=== PATIENT | female | born 1965 | race American Indian/Alaskan Native ===

== ENCOUNTER 2018-11-28 17:33 | Emergency (ER) | payer OTHER ==
--- NOTE | 2018-11-28 17:48 | Emergency Department Report ---
Blank Doc - Documentation Documentation: pt presents with substernal CP that began 2 hours ago states it feels like indigestion hx of GERD, took 2 tums, and gingerale +N/V no radiation of the pain +SOB no LE edema no hormone use PMHx DM, HTN no cardiac hx no family hx of [place] +smoker, 1/2 PPD occ drinker no drug use
[2018-11-28 18:36] LABS: Basophils # (Auto) 0.1 K/mm3 (0.0-0.1); Basophils % (Auto) 0.5 % (0.0-1.8); Eosinophils # (Auto) 0.2 K/mm3 (0.0-0.4); Eosinophils % (Auto) 1.6 % (0.0-4.3); Hematocrit 40.7 % (30.3-42.9); Hemoglobin 13.9 gm/dl (10.1-14.3); Lymphocytes # (Auto) 3.3 K/mm3 (1.2-5.4); Lymphocytes % (Auto) 25.4 % (13.4-35.0); Mean Corpuscular HGB Conc 34 % (30-34); Mean Corpuscular Volume 84 fl (79-97); Monocytes # (Auto) 0.9 K/mm3 (0.0-0.8); Platelet Count 222 K/mm3 (140-440); Red Blood Count 4.82 M/mm3 (3.65-5.03); Red Cell Distribution Width 15.1 % (13.2-15.2)
--- NOTE | 2018-11-28 18:37 | XRay Report ---
PROCEDURE: XR CHEST 1V AP TECHNIQUE: Chest radiograph single view. HISTORY: Chest Pain COMPARISONS: None . FINDINGS: Single frontal view of the chest was acquired. The heart is mildly large. There is no evide nce of congestive heart failure. There is no consolidative infiltrate. IMPRESSION: The heart is mildly large. Otherwise, no active disease in the chest This document is electronically signed by Cordell Georges MD., Nov 28 2018 06:35:13 PM ET
[2018-11-28] MEDS ORDERED: PROTONIX IV ONE (18:40)
[2018-11-28] MEDS ORDERED: LIDOCAINE VISCOUS 2% PO ONE (18:40)
[2018-11-28] MEDS ORDERED: ALUM-MAG HYDROX-SIMETH 200-200-20MG/5ML PO ONE (18:40)
--- NOTE | 2018-11-28 18:44 | Emergency Department Report ---
ED Chest Pain HPI - General Chief Complaint: Chest Pain Stated Complaint: CHEST PAIN Time Seen by Provider: 11/28/18 17:46 Source: patient Mode of arrival: Wheelchair Limitations: No Limitations - History of Present Illness Initial Comments: Patient is 53 years old female with history of hypertension, diabetes and GERD. Patient presented to the ER complaining of substernal chest pain, tightness in nature with radiation to her thoughts. Patient stated that symptoms started after she ate approximately 2 hours ago. Patient denied any shortness of br eath, fever, chills, cough, nausea or vomiting. MD Complaint: chest pain -: hour(s) (2) Onset: during rest Pain Location: substernal Pain Radiation: other (throat) Severity scale (0 -10): 8 Quality: tightness Consistency: constant - Related Data Previous Rx's Medication Instructions Recorded Last Taken Type Ferrous Sulfate [Feosol 325 MG tab] 325 mg PO BID #60 tablet 12/14/13 Unknown Rx Allergies Allergy/AdvReac Type Severity Reaction Status Date / Time No Known Allergies Allergy Verified 11/28/18 17:36 Heart Score - HEART Score History: Slightly suspicious EKG: Non-specific Age: 45-65 Risk factors: 1-2 risk factors Troponin: < normal limit HEART Score: 3 - Critical Actions Critical Actions: 0-3 pts:0.9-1.7%risk of adverse cardiac event.Candidate for discharge ED Review of Systems ROS: Stated complaint: CHEST PAIN Other details as noted in HPI Comment: All other systems reviewed and negative Constitutional: denies: chills, fever Respiratory: denies: cough, shortness of breath Cardiovascular: chest pain. denies: palpitations, dyspnea on exertion Gastrointestinal: denies: abdominal pain, nausea, vomiting, diarrhea, constipation, hematemesis, melena, hematochezia Neurological: denies: headache, weakness, numbness, paresthesias, confusion ED Past Medical Hx - Past Medical History Hx Hypertension: Yes Hx Diabetes: Yes - Surgical History Additional Surgical History: 3 c-sections - Social History Smoking Status: Current Every Day Smoker Substance Use Type: Alcohol - Medications Home Medications: Home Medications Medication Instructions Recorded Confirmed Last Taken Type Ferrous Sulfate [Feosol 325 MG tab] 325 mg PO BID #60 tablet 12/14/13 Unknown Rx ED Physical Exam - General Limitations: No Limitations General appearance: alert, in no apparent distress - Head Head exam: Present: atraumatic, normocephalic, normal inspection - Eye Eye exam: Present: normal appearance, PERRL - ENT ENT exam: Present: normal exam, normal orophraynx, mucous membranes moist - Neck Neck exam: Present: normal inspection, full ROM. Absent: tenderness, meningismus, lymphadenopathy, thyromegaly - Respiratory Respiratory exam: Present: normal lung sounds bilaterally - Cardiovascular Cardiovascular Exam: Present: regular rate, normal rhythm, normal heart sounds - GI/Abdominal GI/Abdominal exam: Present: soft, normal bowel sounds. Absent: distended, tenderness, guarding, rebound, rigid, organomegaly, mass, bruit, pulsatile mass, hernia - Extremities Exam Extremities exam: Present: normal inspection, full ROM, normal capillary refill. Absent: tenderness, pedal edema, calf tenderness - Back Exam Back exam: Present: normal inspection, full ROM. Absent: tenderness, CVA tenderness (R), CVA tenderness (L), muscle spasm, paraspinal tenderness, vertebral tenderness - Neurological Exam Neurological exam: Present: alert, oriented X3, CN II-XII intact, normal gait, reflexes normal - Skin Skin exam: Present: warm, intact, normal color ED Course Vital Signs 11/28/18 11/28/18 11/28/18 17:46 18:54 19:15 Temperature 98.4 F 98.3 F Pulse Rate 117 H 92 H Respiratory 20 15 18 Rate Blood Pressure Blood Pressure 128/95 132/82 [Right] O2 Sat by Pulse 98 99 Oximetry 11/28/18 11/28/18 19:18 20:01 Temperature Pulse Rate 103 H 98 H Respiratory 25 H Rate Blood Pressure 134/76 Blood Pressure [Right] O2 Sat by Pulse 96 Oximetry ED Medical Decision Making - Lab Data Result diagrams: 11/28/18 18:29 11/28/18 18:29 - EKG Data -: EKG Interpreted by Dc EKG shows normal: sinus rhythm Rate: normal - EKG Data Interpretation: no acute changes - Radiology Data Radiology results: report reviewed Referring Physician: SUZIE SCHMIDT Patient Name: VENTURA SALOMON Date of : 1965 Sex: Female Report Date: 2018-11-28 Report Status: Finalized Findings [facility] [address] [place] [address] Cat Scan Report Signed Patient: VENTURA SALOMON MR#: [id number] 73 : 1965 Acct:[id number] Age/Sex: 53 / F ADM Date: 11/28/18 Loc: ED Attending Dr: Ordering Physician: SUZIE SCHMIDT Date of Service: 11/28/18 Procedure(s): CT angio chest Accession Number(s): [id number] cc: SUZIE SCHMIDT PROCEDURE: CT ANGIO CHEST TECHNIQUE: Computerized tomographic angiography of the chest was performed after the IV injection of iodinated nonionic contrast including image processing. The image data was postprocessed using 2-dimensional multiplanar reformatted (MPR) and 3-dimensional (MIP and/or volume rendered) techniques. Automated exposure control, adjustment of mA and/or kV according to patient size, or iterative reconstruction dose optimization techniques were utilized. CT DOSE LENGTH PRODUCT: 706.8 mGycm HISTORY: CHEST PAIN, ELEVATED D-DIMER COMPARISONS: None . FINDINGS: Contrast-enhanced CT angiography of the chest was performed following the intravenous administration of iodinated contrast. Sagittal and coronal MIP three-dimensional reformatted images were generated. These images demonstrate no CT evidence of pulmonary thromboembolic disease. There is no aortic dissection. There is no consolidative pulmonary infiltrate. There are small bilateral thyroid nodules the largest of which is on the right, 0.6 cm. There is considerable wall thickening of the mid and distal esophagus, consistent with severe esophagitis. In the upper abdomen there is fatty infiltration of the liver. IMPRESSION: No CT evidence of pulmonary thromboembolic disease Considerable esophageal wall thickening of the mid and distal esophagus consistent with severe esophagitis This document is electronically signed by Cordell Georges MD., Nov 28 2018 08:22:04 PM ET Transcribed By: TODD Dictated By: CORDELL GEORGES MD Electronically Authenticated By: CORDELL GEORGES MD Signed Date/Time: 11/28/182023 DD/ 46 TD/TT: 11/28/181947 - Medical Decision Making Patient is 53 years old female with history of hypertension, diabetes and GERD. Patient presented to the ER complaining of substernal chest pain, tightness in nature with radiation to her thoughts. Patient stated that symptoms started after she ate approximately 2 hours ago. Patient denied any shortness of b reath, fever, chills, cough, nausea or vomiting. Patient EKG did not show any ST elevation or depression. 2 sets of troponin is negative. CTA chest is negative for acute finding except for esophagitis no pulmonary embolism. Patient improved significantly with Mylanta and Viscous Lidocaine. I believe patient's symptoms is most likely related to gastroesophageal reflux disease. I'll start patient on Nexium and advised to follow-up with her primary care physician for possible referral to GI. So advised the patient to return to the ER if symptoms are not improved. Critical care attestation.: If time is entered above; I have spent that time in minutes in the direct care of this critically ill patient, excluding procedure time. ED Disposition Clinical Impression: Chest pain, Esophagitis Disposition: - TO HOME OR SELFCARE Is pt being admited?: No Condition: Stable Instructions: Chest Pain (ED), Gastroesophageal Reflux in Children (ED) Referrals: [facility] [Other] - 3-5 Days
[2018-11-28 18:46] LABS: INR 0.99 (0.87-1.13)
[2018-11-28 18:47] LABS: Partial Thromboplastin Time 31.5 Sec. (24.2-36.6)
[2018-11-28] MEDS ORDERED: ZOFRAN ONE (18:51)
[2018-11-28] MEDS ORDERED: ZOFRAN IV ONE (18:55)
[2018-11-28 19:15] LABS: Alanine Aminotransferase 22 units/L (7-56); Albumin 4.1 g/dL (3.9-5); BUN/Creatinine Ratio 24; Blood Urea Nitrogen 17 mg/dL (7-17); Calcium 10.4 mg/dL (8.4-10.2); Hemolysis Index 13
--- NOTE | 2018-11-28 20:24 | Cat Scan Report ---
PROCEDURE: CT ANGIO CHEST TECHNIQUE: Computerized tomographic angiography of the chest was performed after the IV injection of iodinated nonionic contrast including image processing. The image data was postprocessed using 2-di mensional multiplanar reformatted (MPR) and 3-dimensional (MIP and/or volume rendered) techniques. Au tomated exposure control, adjustment of mA and/or kV according to patient size, or iterative reconstr uction dose optimization techniques were utilized. CT DOSE LENGTH PRODUCT: 706.8 mGycm HISTORY: CHEST PAIN, ELEVATED D-DIMER COMPARISONS: None . FINDINGS: Contrast-enhanced CT angiography of the chest was performed following the intravenous admin istration of iodinated contrast. Sagittal and coronal MIP three-dimensional reformatted images were g enerated. These images demonstrate no CT evidence of pulmonary thromboembolic disease. There is no aortic disse ction. There is no consolidative pulmonary infiltrate. There are small bilateral thyroid nodules the largest of which is on the right, 0.6 cm. There is considerable wall thickening of the mid and distal esophagus, consistent with severe esophag itis. In the upper abdomen there is fatty infiltration of the liver. IMPRESSION: No CT evidence of pulmonary thromboembolic disease Considerable esophageal wall thickening of the mid and distal esophagus consistent with severe esopha gitis This document is electronically signed by Cordell Georges MD., Nov 28 2018 08:22:04 PM ET
[2018-11-28 21:38] VITALS: BP 121/72
== END 2018-11-28 22:10 | disposition home or self-care (01) ==
LOC: ED 17:33
DX: K20.9 Esophagitis, unspecified (principal); I10 Essential (primary) hypertension; E11.9 Type 2 diabetes mellitus without complications; F17.200 Nicotine dependence, unspecified, uncomplicated
CPT/HCPCS: 36415; 71045; 71275; 80053; 83690; 84484; 85025; 85379; 85610; 85730; 93005; 93010; 96374; 96375; 99284; C9113; J2405; Q9967

== ENCOUNTER 2019-03-08 09:42 | Day surgery (SDC) | payer OTHER ==
--- NOTE | 2019-03-08 12:35 | Anesthesia Day of Surgery ---
Anesthesia Day of Surgery - Day of Surgery Patient Examined: Yes Patient H&P Reviewed: Yes Patient is NPO: Yes
--- NOTE | 2019-03-08 12:39 | Anesthesia Consultation ---
Anesthesia Consult and Med Hx Date of service: 03/08/19 - Airway Anesthetic Teeth Evaluation: Good ROM Head & Neck: Adequate Mental/Hyoid Distance: Adequate Mallampati Class: Class II Intubation Access Assessment: Good - Pre-Operative Health Status ASA Pre-Surgery Classification: ASA2 Proposed Anesthetic Plan: MAC - Cardiovascular System Hx Hypertension: Yes - Gastrointestinal Hx Gastroesophageal Reflux Disease: Yes - Endocrine Hx Renal Disease: No Hx Liver Disease: No Hx Non-Insulin Dependent Diabetes: Yes Hx Thyroid Disease: No - Additional Comments Anesthesia Medical History Comments: Sjogren's
[2019-03-08] MEDS ORDERED: NACL 0.9% 1000 ML 1,000 ML IV SCH (12:57)
[2019-03-08] MEDS ORDERED: DIPRIVAN 10 MG/ML IV ONE ×2 (13:30)
--- NOTE | 2019-03-08 13:48 | Short Stay Summary ---
Short Stay Documentation Date of service: 03/08/19 Narrative H&P: The patient presents for routine screening colonoscopy, her first study, average risks. - History Past Medical History: diabetes, GERD, hypertension, other (sjogrens syndrome) Past Surgical History: Social history: no significant social history, , lives with family - Allergies and Medications Current Medications: Allergies shrimp Adverse Reaction (Severe, Verified 03/08/19 13:04) Swelling Home Medications Medication Instructions Recorded Confirmed Last Taken Type Cetirizine HCl 10 mg PO DAILY 03/08/19 03/08/19 03/07/19 History Hydroxychloroquine 200 mg PO BID 03/08/19 03/08/19 03/07/19 History Lisinopril 30 mg PO DAILY 03/08/19 03/08/19 03/08/19 History Pravastatin 20 mg PO DAILY 03/08/19 03/08/19 03/07/19 History RX: glipiZIDE [Glucotrol] 1 tab PO BID 03/08/19 03/08/19 03/07/19 History amLODIPine 10 mg PO DAILY 03/08/19 03/08/19 03/08/19 History metFORMIN 500 mg PO BID 03/08/19 03/08/19 03/07/19 History Active Medications Sodium Chloride (Nacl 0.9% 1000 Ml) 1,000 mls @ 50 mls/hr IV DIRECT [place] Last Admin: 03/08/19 12:40 Dose: 50 mls/hr Documented by: - Physical exam General appearance: no acute distress, well-nourished, obese Integumentary: no rash, no growths, no abnormal pigmentation HEENT: Atraumatic, PERRLA, EOMI, Mucous membr. moist/pink Lungs: Clear to auscultation, Normal air movement Breasts: deferred Heart: Regular rate, Normal S1, Normal S2, No murmurs Gastrointestinal: normoactive bowel sounds, no tenderness, no distended, no masses, no guarding, no organomegaly Female Genitourinary: deferred Rectal Exam: normal exam-external/orifice, normal rectal tone, no mass Extremities: no ischemia, pulses intact, pulses symmetrical, No edema, normal temperature, normal color, Full ROM Neurological: Normal gait, Normal speech, Strength at 5/5 X4 ext, Normal tone, Sensation intact, Cranial nerves 3-12 NL - Brief post op/procedure progress note Date of procedure: 03/08/19 Findings: see dictation Estimated blood loss: none Pathology: none Condition: stable - Disposition Condition at discharge: Good Disposition: DC-01 TO HOME OR SELFCARE - Discharge Diagnoses (1) Colon cancer screening Status: Acute Short Stay Discharge Plan Activity: other (no driving for 24 hours) Weight Bearing Status: Weight Bear as Tolerated Diet: diabetic Follow up with: SUZI SON MD [Primary Care Provider] - 7 Days
--- NOTE | 2019-03-08 13:49 | Operative Report ---
Operative Report Operative Report: Date of procedure: 03/08/2019 Preprocedure diagnosis: Colon cancer screening, average risk. No prior studies. Post procedure diagnosis: Normal study Procedure: Colonoscopy to the cecum Endoscopist: Dr. David Anesthesia: Monitored anesthesia care per anesthesia department Estimated blood loss: 0 Medications: Monitored anesthesia care. See separate report by anesthesia for details. After careful discussion of the nature and purpose of the procedure as well as details of the technique risks benefits and alternatives the patient gave consent. Please see recent history and physical from the office. The patient was placed in the left lateral decubitus position and medicated per anesthesia. A rectal exam was performed sphincter tone was normal there were no masses palpable. The [employer] 570 scope was passed transanally and advanced under continuous direct vision without difficulty to the cecum. The colon was well prepared. The cecum was normal. The ascending colon was normal and on forward and retroflexed views. The transverse colon, descending colon, and sigmoid colon were normal. The rectum was normal on forward and retroflexed views. The procedure was well-tolerated overall and the patient was observed in recovery. Conclusions: Normal colonoscopy to the cecum. Plan: Repeat colonoscopy in 10 years, sooner if clinically indicated. Signed electronically: Brown David M.D.
[2019-03-08] MEDS ORDERED: XYLOCAINE MPF 2% ONE (14:00)
[2019-03-08] MEDS ORDERED: WATER FOR IRRIG STERILE IR ONE (14:07)
[2019-03-08 16:50] VITALS: BP 121/74
== END 2019-03-08 09:43 | disposition home or self-care (01) ==
LOC: GIO 09:42
PROVIDERS: ATTEND Internal Medicine Gastroenterology
DX: Z12.11 Encounter for screening for malignant neoplasm of colon (principal); E78.00 Pure hypercholesterolemia, unspecified; K21.9 Gastro-esophageal reflux disease without esophagitis; E11.9 Type 2 diabetes mellitus without complications; I10 Essential (primary) hypertension; F17.210 Nicotine dependence, cigarettes, uncomplicated; Z79.899 Other long term (current) drug therapy; Z79.84 Long term (current) use of oral hypoglycemic drugs; Z98.891 History of uterine scar from previous surgery; Z98.890 Other specified postprocedural states; Z88.8 Allergy status to other drugs, medicaments and biological substances
CPT/HCPCS: 45378; J2704; J7030